=== PATIENT | female | born 1945 | race Caucasian/White ===

== ENCOUNTER 2019-04-01 05:42 | Day surgery (SDC) | payer MEDICARE, OTHER ==
[~2019-04-01] VITALS: Ht 152.4 cm; Wt 91.0 kg
[~2019-04-01 05:42] MED LIST: AMLO5TAB4 PO; ASPI-496 PO; ATOR20TA37 PO; CALC-451 PO; CEFD300C37 PO; ENAL20TA68 PO; FERR324T5 PO; GARL200T PO; HYDR25TA6 PO; IBAN150T15 PO; METF500T27 PO; METH500T5 PO; OMEP20TA62 PO
[2019-04-01] MEDS ORDERED: LACTATED RINGERS 1,000 ML IV SCH (06:06)
[2019-04-01 06:07] VITALS: BP 151/87
[2019-04-01] MEDS ORDERED: FENTANYL PF 100 MCG/2ML ONE (07:23)
[2019-04-01] MEDS ORDERED: FENTANYL PF 100 MCG/2ML IV PRN (07:30)
[2019-04-01] MEDS ORDERED: HYDROmorphone 2 MG/ML, 1ML IVPush PRN (07:30)
[2019-04-01] MEDS ORDERED: PROMETHAZINE 25 MG/ML, 1ML IV PRN (07:30)
[2019-04-01] MEDS ORDERED: MEPERIDINE/PF 25MG/ML,1ML IVPush PRN (07:30)
[2019-04-01] MEDS ORDERED: HALOPERIDOL 5 MG/ML IV PRN (07:30)
[2019-04-01] MEDS ORDERED: LABETALOL 5MG/ML, 20ML IV PRN (07:30)
[2019-04-01] MEDS ORDERED: hydrALAzine 20 MG/ML, 1ML IV PRN (07:30)
[2019-04-01] MEDS ORDERED: EPHEDRINE 50 MG/ML, 1ML ONE (07:45)
[2019-04-01 07:57] LABS: ALANINE AMINOTRANSFERASE 18 U/L (12-78); ALBUMIN 3.4 g/dL (3.4-5.0); ANION GAP 6 mmol/L (5-15); CALCIUM 9.3 mg/dL (8.5-10.1); CHLORIDE 110 mmol/L (98-107); CREATININE 0.93 mg/dL (0.55-1.02)
[2019-04-01 08:00] LABS: ALKALINE PHOSPHATASE 51 U/L (45-117); TOTAL PROTEIN 7.2 g/dL (6.4-8.2)
[2019-04-01] MEDS ORDERED: OMNIPAQUE 350 MG/ML, 50 ML BOTTLE ONE (08:02)
[2019-04-01 08:04] LABS: BASOPHILS # (AUTO) 0.02 x10^3/uL (0-0.1); BASOPHILS % (AUTO) 0 % (0-1); EOSINOPHILS # (AUTO) 0.24 x10^3/uL (0-0.4); EOSINOPHILS % (AUTO) 4 % (1-7); LYMPHOCYTES # (AUTO) 1.38 x10^3/uL (1-3.4); LYMPHOCYTES % (AUTO) 22 % (22-44); MD NO; MEAN CORPUSCULAR HEMOGLOBIN 27.4 pg (27.0-34.8); MEAN CORPUSCULAR HGB CONC 33.3 g/dL (32.4-35.8); MEAN CORPUSCULAR VOLUME 82.5 fL (80-100); MEAN PLATELET VOLUME 7.9 fL (7.4-10.4); MONOCYTES # (AUTO) 0.45 x10^3/uL (0.2-0.8); MONOCYTES % (AUTO) 7 % (2-9); NEUTROPHILS # (AUTO) 4.19 x10^3/uL (1.8-6.8); NEUTROPHILS % (AUTO) 67 % (42-75); PLATELET COUNT 179 x10^3/uL (130-400); RED CELL DISTRIBUTION WIDTH 20.3 % (9.6-15.2)
[2019-04-01] MEDS ORDERED: ROCURONIUM 10MG/ML,5ML ONE (08:41)
[2019-04-01] MEDS ORDERED: GLYCOPYRROLATE 0.2MG/1ML, 5ML ONE (08:41)
[2019-04-01] MEDS ORDERED: CEFAZOLIN 1,000 MG ONE (08:41)
[2019-04-01] MEDS ORDERED: SUCCINYLCHOLINE 20 MG/ML, 10ML ONE (08:41)
[2019-04-01] MEDS ORDERED: DEXAMETHASONE 4 MG/ML, 1ML ONE (08:41)
[2019-04-01] MEDS ORDERED: PROPOFOL 10 MG/ML, 20ML ONE (08:41)
[2019-04-01] MEDS ORDERED: NEOSTIGMINE 1 MG/ML, 10ML ONE (08:41)
[2019-04-01] MEDS ORDERED: ONDANSETRON 2MG/ML, 2ML ONE (08:41)
[2019-04-01] MEDS ORDERED: HALOPERIDOL 5 MG/ML ONE (08:47)
== END 2019-04-01 10:35 | disposition home or self-care (01) ==
LOC: OUT 05:42
PROVIDERS: ATTEND Internal Medicine Gastroenterology
DX: T85.590A Other mechanical complication of bile duct prosthesis, initial encounter (principal); K80.51 Calculus of bile duct without cholangitis or cholecystitis with obstruction; I10 Essential (primary) hypertension; E11.9 Type 2 diabetes mellitus without complications; K21.9 Gastro-esophageal reflux disease without esophagitis; C83.10 Mantle cell lymphoma, unspecified site; E66.01 Morbid (severe) obesity due to excess calories; Z88.5 Allergy status to narcotic agent; Y83.8 Other surgical procedures as the cause of abnormal reaction of the patient, or of later complication, without mention of misadventure at the time of the procedure
CPT/HCPCS: 43264; 43275; 74328; 80053; 82962; 85025; 93005; C1769; J0330; J0690; J1100; J1630; J2405; J2704; J3010; J7120; Q9967; J2710

== ENCOUNTER 2019-11-14 22:01 | Inpatient (IN) | payer MEDICARE, OTHER ==
[~2019-11-14] VITALS: Ht 152.4 cm; Wt 99.7 kg
--- NOTE | 2019-11-14 22:13 | NUR ---
WILLIE MORIN PHONE #[phone] WILL COME AND PICK HER UP WHEN CLOSE FOR D/C
--- NOTE | 2019-11-14 22:14 | NUR ---
WILLIE IS PT SON
[2019-11-14] MEDS ORDERED: HYDROmorphone 2 MG/ML, 1ML ONE (22:48)
[2019-11-14] MEDS ORDERED: ONDANSETRON 2MG/ML, 2ML ONE (22:48)
[2019-11-14] MEDS ORDERED: HYDROmorphone 2 MG/ML, 1ML IVPush PRN (23:00)
[2019-11-14] MEDS ORDERED: ONDANSETRON 2MG/ML, 2ML IVPush ONE (23:00)
--- NOTE | 2019-11-14 23:35 | NUR ---
Patient presents to ER c/o back pain x2 weeks and left quad abd pain and diarrhea x2 days. Patient states the pain is getting worse. Patient is in NAD. Respirations even and unlabored.
[2019-11-14 23:46] LABS: BASOPHILS # (AUTO) 0.04 x10^3/uL (0-0.1); BASOPHILS % (AUTO) 1 % (0-1); EOSINOPHILS # (AUTO) 0.26 x10^3/uL (0-0.4); EOSINOPHILS % (AUTO) 3 % (1-7); LYMPHOCYTES # (AUTO) 2.78 x10^3/uL (1-3.4); LYMPHOCYTES % (AUTO) 34 % (22-44); MD NO; MEAN CORPUSCULAR HEMOGLOBIN 27.2 pg (27.0-34.8); MEAN CORPUSCULAR HGB CONC 32.8 g/dL (32.4-35.8); MEAN CORPUSCULAR VOLUME 82.8 fL (80-100); MEAN PLATELET VOLUME 8.3 fL (7.4-10.4); MONOCYTES # (AUTO) 1.13 x10^3/uL (0.2-0.8); MONOCYTES % (AUTO) 14 % (2-9); NEUTROPHILS # (AUTO) 3.91 x10^3/uL (1.8-6.8); NEUTROPHILS % (AUTO) 48 % (42-75); PLATELET COUNT 131 x10^3/uL (130-400); RED BLOOD COUNT 4.94 x10^6/uL (3.82-5.3); RED CELL DISTRIBUTION WIDTH 15.6 % (9.6-15.2)
[2019-11-14 23:53] LABS: MICROSCOPIC AUTO
[2019-11-14 23:54] LABS: ALANINE AMINOTRANSFERASE 31 U/L (12-78); ALBUMIN 3.9 g/dL (3.4-5.0); ANION GAP 11 mmol/L (5-15); CALCIUM 9.2 mg/dL (8.5-10.1); CHLORIDE 107 mmol/L (98-107); CREATININE 1.12 mg/dL (0.55-1.02)
[2019-11-14 23:56] LABS: ALKALINE PHOSPHATASE 55 U/L (45-117); BILIRUBIN,TOTAL 0.7 mg/dL (0.2-1.0); TOTAL PROTEIN 7.5 g/dL (6.4-8.2)
[2019-11-15] MEDS ORDERED: CEFTRIAXONE PMX 1GM/50ML 50 ML ONE (01:27)
[2019-11-15] MEDS ORDERED: SODIUM CHLORIDE 0.9% 1,000ML IVBOLUS ONE (01:30)
[2019-11-15] MEDS ORDERED: METRONIDAZOLE PMX 500MG/100ML 100 ML IV ONE (01:30)
[2019-11-15] MEDS ORDERED: CEFTRIAXONE PMX 1GM/50ML 50 ML IV ONE (01:30)
[2019-11-15] MEDS ORDERED: ONDANSETRON 2MG/ML, 2ML ONE (01:50)
[2019-11-15] MEDS ORDERED: CYCL-259 PO (01:54)
[2019-11-15] MEDS ORDERED: DIPH1TAB PO (01:54)
[2019-11-15] MEDS ORDERED: ONDANSETRON 2MG/ML, 2ML IVPush ONE (02:00)
[2019-11-15] MEDS ORDERED: METRONIDAZOLE PMX 500MG/100ML 100 ML ONE (02:08)
[2019-11-15] MEDS ORDERED: OMNIPAQUE 350 MG/ML, 100ML BOTTLE ONE (02:11)
[2019-11-15] MEDS ORDERED: SODIUM CHLORIDE 0.9% 1,000 ML IV SCH (02:26)
[2019-11-15] MEDS ORDERED: hydrALAzine 20 MG/ML, 1ML IVPush PRN (02:30)
[2019-11-15] MEDS ORDERED: ONDANSETRON 2MG/ML, 2ML IVPush PRN (02:30)
[2019-11-15] MEDS ORDERED: KETOROLAC 30 MG/1 ML IV PRN (02:30)
[2019-11-15 02:45] VITALS: BP 141/65
[2019-11-15] MEDS ORDERED: [UNRECOGNIZED DRUG - CODE] PO (03:11)
[2019-11-15] MEDS ORDERED: MECO10005 PO (03:11)
[2019-11-15] MEDS ORDERED: [UNRECOGNIZED DRUG - OTHER] PO (03:11)
[2019-11-15 05:58] LABS: BASOPHILS # (AUTO) 0.05 x10^3/uL (0-0.1); BASOPHILS % (AUTO) 1 % (0-1); EOSINOPHILS # (AUTO) 0.11 x10^3/uL (0-0.4); EOSINOPHILS % (AUTO) 2 % (1-7); LYMPHOCYTES # (AUTO) 2.03 x10^3/uL (1-3.4); LYMPHOCYTES % (AUTO) 27 % (22-44); MD NO; MEAN CORPUSCULAR HEMOGLOBIN 27.5 pg (27.0-34.8); MEAN CORPUSCULAR HGB CONC 33.2 g/dL (32.4-35.8); MEAN CORPUSCULAR VOLUME 82.7 fL (80-100); MEAN PLATELET VOLUME 7.8 fL (7.4-10.4); MONOCYTES # (AUTO) 0.88 x10^3/uL (0.2-0.8); MONOCYTES % (AUTO) 12 % (2-9); NEUTROPHILS # (AUTO) 4.34 x10^3/uL (1.8-6.8); NEUTROPHILS % (AUTO) 59 % (42-75); PLATELET COUNT 116 x10^3/uL (130-400)
[2019-11-15 06:10] LABS: ANION GAP 8 mmol/L (5-15); CALCIUM 8.8 mg/dL (8.5-10.1); CHLORIDE 111 mmol/L (98-107); CREATININE 1.08 mg/dL (0.55-1.02)
[2019-11-15] MEDS: INSULIN LISPRO 100 UNITS/ML, PEN SQ-INSULIN SCH ×4 (07:00→20:07)
[2019-11-15] MEDS: PANTOPRAZOLE 40 MG IV IVPush SCH (07:55)
[2019-11-15 08:54] VITALS: BP 135/77
[2019-11-15] MEDS ORDERED: CYCLOBENZAPRINE 10 MG TABLET PO PRN (10:00)
[2019-11-15] MEDS: ENOXAPARIN 40 MG/0.4 ML SQ SCH (10:39)
[2019-11-15] MEDS ORDERED: MAGNESIUM SULFATE PMX 2GM/50ML 50 ML IV ONE (12:30)
[2019-11-15] MEDS: ACETAMINOPHEN 325 MG TABLET PO PRN (14:14)
[2019-11-15 14:30] VITALS: BP 123/60
[2019-11-15 19:16] VITALS: BP 146/76
[2019-11-15] MEDS: SODIUM CHLORIDE 0.9% 1,000 ML IV SCH (20:10)
[2019-11-15] MEDS: ATORVASTATIN 20 MG TABLET PO SCH (20:10)
[2019-11-16 00:41] VITALS: BP 154/70
[2019-11-16] MEDS: SODIUM CHLORIDE 0.9% 1,000 ML IV SCH ×2 (04:15→19:20)
[2019-11-16 04:32] LABS: BASOPHILS # (AUTO) 0.03 x10^3/uL (0-0.1); BASOPHILS % (AUTO) 1 % (0-1); EOSINOPHILS # (AUTO) 0.21 x10^3/uL (0-0.4); EOSINOPHILS % (AUTO) 4 % (1-7); LYMPHOCYTES # (AUTO) 2.05 x10^3/uL (1-3.4); LYMPHOCYTES % (AUTO) 35 % (22-44); MD NO; MEAN CORPUSCULAR HEMOGLOBIN 26.9 pg (27.0-34.8); MEAN CORPUSCULAR HGB CONC 32.3 g/dL (32.4-35.8); MEAN CORPUSCULAR VOLUME 83.3 fL (80-100); MEAN PLATELET VOLUME 8.1 fL (7.4-10.4); MONOCYTES # (AUTO) 0.73 x10^3/uL (0.2-0.8); MONOCYTES % (AUTO) 13 % (2-9); NEUTROPHILS # (AUTO) 2.76 x10^3/uL (1.8-6.8); NEUTROPHILS % (AUTO) 48 % (42-75); PLATELET COUNT 110 x10^3/uL (130-400); RED BLOOD COUNT 4.42 x10^6/uL (3.82-5.3); RED CELL DISTRIBUTION WIDTH 15.8 % (9.6-15.2)
[2019-11-16 04:41] LABS: ALBUMIN 3.3 g/dL (3.4-5.0); ANION GAP 9 mmol/L (5-15); CALCIUM 8.5 mg/dL (8.5-10.1); CHLORIDE 112 mmol/L (98-107)
[2019-11-16 04:50] LABS: ALANINE AMINOTRANSFERASE 27 U/L (12-78); ALKALINE PHOSPHATASE 45 U/L (45-117); BILIRUBIN,TOTAL 0.5 mg/dL (0.2-1.0); CHOLESTEROL, TOTAL 123 mg/dL (140-239); CREATININE 0.96 mg/dL (0.55-1.02); HDL CHOL % 25 % (28-40); HDL CHOLESTEROL (DIRECT) 31 mg/dL (40-60); LDL CHOLESTEROL,CALCULATED 59 mg/dL (54-169); TOTAL PROTEIN 6.4 g/dL (6.4-8.2); TRIGLYCERIDES 164 mg/dL (50-200); VLDL CHOLESTEROL 33 mg/dL (0-25)
[2019-11-16 04:51] LABS: LDL/HDL RATIO 1.9 (0.5-3.0)
[2019-11-16] MEDS: INSULIN LISPRO 100 UNITS/ML, PEN SQ-INSULIN SCH ×4 (07:00→20:21)
[2019-11-16] MEDS: ACETAMINOPHEN 325 MG TABLET PO PRN (07:33)
[2019-11-16] MEDS: PANTOPRAZOLE 40 MG IV IVPush SCH (07:33)
[2019-11-16 07:48] VITALS: BP 141/75
[2019-11-16] MEDS: HYDROCHLOROTHIAZIDE 25 MG TABLET PO SCH (10:05)
[2019-11-16] MEDS: AMLODIPINE 5 MG TABLET PO SCH (10:05)
[2019-11-16] MEDS: ASPIRIN 81 MG TABLET EC PO SCH (10:05)
[2019-11-16] MEDS: ENOXAPARIN 40 MG/0.4 ML SQ SCH (10:06)
[2019-11-16 13:45] VITALS: BP 137/68
[2019-11-16 19:46] VITALS: BP 152/69
[2019-11-16] MEDS: ATORVASTATIN 20 MG TABLET PO SCH (20:17)
[2019-11-16] MEDS: ENOXAPARIN 30 MG/0.3 ML SQ SCH (20:17)
[2019-11-17 00:18] VITALS: BP 99/55
[2019-11-17] MEDS: SODIUM CHLORIDE 0.9% 1,000 ML IV SCH (03:43)
[2019-11-17 06:04] LABS: BASOPHILS # (AUTO) 0.03 x10^3/uL (0-0.1); BASOPHILS % (AUTO) 1 % (0-1); EOSINOPHILS # (AUTO) 0.28 x10^3/uL (0-0.4); EOSINOPHILS % (AUTO) 5 % (1-7); LYMPHOCYTES # (AUTO) 2.25 x10^3/uL (1-3.4); LYMPHOCYTES % (AUTO) 36 % (22-44); MD NO; MEAN CORPUSCULAR HEMOGLOBIN 27.1 pg (27.0-34.8); MEAN CORPUSCULAR HGB CONC 32.9 g/dL (32.4-35.8); MEAN CORPUSCULAR VOLUME 82.3 fL (80-100); MEAN PLATELET VOLUME 7.8 fL (7.4-10.4); MONOCYTES # (AUTO) 1.01 x10^3/uL (0.2-0.8); MONOCYTES % (AUTO) 16 % (2-9); NEUTROPHILS # (AUTO) 2.66 x10^3/uL (1.8-6.8); NEUTROPHILS % (AUTO) 43 % (42-75); PLATELET COUNT 114 x10^3/uL (130-400); RED BLOOD COUNT 4.65 x10^6/uL (3.82-5.3); RED CELL DISTRIBUTION WIDTH 15.4 % (9.6-15.2)
[2019-11-17 06:14] LABS: ANION GAP 7 mmol/L (5-15); CALCIUM 8.6 mg/dL (8.5-10.1); CHLORIDE 116 mmol/L (98-107); CREATININE 0.88 mg/dL (0.55-1.02)
[2019-11-17] MEDS: INSULIN LISPRO 100 UNITS/ML, PEN SQ-INSULIN SCH ×2 (07:00→11:00)
[2019-11-17 07:17] VITALS: BP 147/81
[2019-11-17] MEDS: AMLODIPINE 5 MG TABLET PO SCH (08:32)
[2019-11-17] MEDS: PANTOPRAZOLE 40 MG IV IVPush SCH (08:32)
[2019-11-17] MEDS: ASPIRIN 81 MG TABLET EC PO SCH (08:32)
[2019-11-17] MEDS: HYDROCHLOROTHIAZIDE 25 MG TABLET PO SCH (08:32)
[2019-11-17] MEDS: ENOXAPARIN 30 MG/0.3 ML SQ SCH (08:33)
[2019-11-17] MEDS ORDERED: DIPH1TAB PO (09:07)
[2019-11-17] MEDS ORDERED: GLIP5TAB22 PO (09:07)
== END 2019-11-17 12:05 | disposition home or self-care (01) | DRG 394 ==
LOC: ED 11-15 01:26 → EDIP 11-15 01:38 → 3N 11-15 02:33 → DCLOUNGE 11-17 11:55
PROVIDERS: ADMIT Hospitalist; ATTEND Internal Medicine Infectious Disease
DX: K55.9 Vascular disorder of intestine, unspecified (principal); E87.2 Acidosis; K43.9 Ventral hernia without obstruction or gangrene; Z88.5 Allergy status to narcotic agent; Z88.8 Allergy status to other drugs, medicaments and biological substances; E11.9 Type 2 diabetes mellitus without complications; E78.5 Hyperlipidemia, unspecified; I10 Essential (primary) hypertension; K21.9 Gastro-esophageal reflux disease without esophagitis; M81.0 Age-related osteoporosis without current pathological fracture; Z79.84 Long term (current) use of oral hypoglycemic drugs; Z80.3 Family history of malignant neoplasm of breast; Z80.49 Family history of malignant neoplasm of other genital organs; Z85.038 Personal history of other malignant neoplasm of large intestine; Z85.3 Personal history of malignant neoplasm of breast; Z85.42 Personal history of malignant neoplasm of other parts of uterus; Z85.72 Personal history of non-Hodgkin lymphomas; Z90.12 Acquired absence of left breast and nipple; Z90.49 Acquired absence of other specified parts of digestive tract; Z90.710 Acquired absence of both cervix and uterus; K83.8 Other specified diseases of biliary tract
CPT/HCPCS: 36415; 71045; 74177; 80048; 80053; 80061; 81001; 82962; 83036; 83605; 83690; 83735; 84100; 84443; 85025; 87040; 87086; 93005; 96374; 96375; 96376; 99285; G0378; J0696; J1170; J1650; J2405; Q9967; C9113; J3475; J7030